=== PATIENT | female | born 1935 | race African-American/Black ===

== ENCOUNTER 2022-07-10 11:17 | Inpatient (IN) | payer MEDICARE, OTHER ==
[~2022-07-10] VITALS: Ht 152.4 cm; Wt 44.5 kg
--- NOTE | 2022-07-10 11:31 | NUR ---
PER CM PT FAMILY REQUEST DC TO [facility]
--- NOTE | 2022-07-10 11:35 | NUR ---
RECEIVED PT 86 YRS FEMALE HERE FOR POOR PO IN TACK AND AGETATION AWAKE CONFUSED NOT FALLOW COMMAND
[2022-07-10] MEDS ORDERED: DONE5TAB7 PO (11:46)
[2022-07-10] MEDS ORDERED: RISP0.2515 PO (11:46)
[2022-07-10] MEDS ORDERED: AMLO5TAB4 PO (11:46)
[2022-07-10] MEDS ORDERED: CLON0.5T4 PO (11:46)
[2022-07-10] MEDS ORDERED: METO25TA20 PO (11:46)
[2022-07-10] MEDS ORDERED: CHOL100043 PO (11:46)
--- NOTE | 2022-07-10 11:54 | NUR ---
INSERTED ANGO CATHTER FR . 20 ON RT AC BLOOD DROW AND SENT TO LAB
[2022-07-10 12:09] LABS: BASOPHILS % (AUTO) 0.6 % (0.0-2.0); EOSINOPHILS % (AUTO) 1.6 % (0.0-6.0); HEMATOCRIT 37 % (33-45); HEMOGLOBIN 11.6 g/dL (11.5-14.8); LYMPHOCYTES # (AUTO) 1.2 K/uL (0.8-4.8); LYMPHOCYTES % (AUTO) 17.4 % (20.0-44.0); MEAN CORPUSCULAR HGB CONC 31 g/dl (31.0-36.0); MEAN CORPUSCULAR VOLUME 82 fL (82-100); MONOCYTES # (AUTO) 0.6 K/uL (0.1-1.30); MONOCYTES % (AUTO) 8.7 % (2.0-12.0); NEUTROPHILS % (AUTO) 71.7 % (43.0-81.0); PLATELET COUNT (AUTO) 189 K/uL (150-450)
[2022-07-10 12:19] LABS: CALCIUM, SERUM 9.2 mg/dL (8.5-10.1); CREATININE 0.8 mg/dL (0.6-1.3); POTASSIUM 3.9 mmol/L (3.5-5.1)
--- NOTE | 2022-07-10 12:21 | NUR ---
COVID SWAB SENT TO LAB
--- NOTE | 2022-07-10 13:18 | NUR ---
I7O CATHETER DONE DRANING 250 ML YELLOW COUDY COLOR UA SENT TO LAB
[2022-07-10 14:01] LABS: BILIRUBIN,URINE NEGATIVE (NEGATIVE); COLOR,URINE YELLOW (YELLOW); LEUKOCYTE ESTERASE ,URINE NEGATIVE (NEGATIVE); NITRITE, URINE NEGATIVE (NEGATIVE); PROTEIN,URINE NEGATIVE (NEGATIVE); UGLUCOSE NEGATIVE (NEGATIVE); UROBILINOGEN,URINE 0.2 EU/dL (0.2)
--- NOTE | 2022-07-10 14:20 | NUR ---
PER NURSING BRIEFCASE SEWER, PT COORDINATING TRANSFER TO [facility]
--- NOTE | 2022-07-10 16:22 | NUR ---
WATING FOR MEDICALE FLOOR BED NO CHEST PAIN NO SOB
[2022-07-10] MEDS ORDERED: METOPROLOL TARTRATE 25 MG TABLET ONE (17:07)
[2022-07-10] MEDS ORDERED: risperiDONE 0.25 MG TABLET PO ONE (17:07)
[2022-07-10] MEDS: METOPROLOL TARTRATE 25 MG TABLET PO SCH (17:15)
[2022-07-10] MEDS: risperiDONE 0.25 MG TABLET PO SCH (17:15)
--- NOTE | 2022-07-10 17:17 | NUR ---
ASPLEEPY ON AND OFF RESTING NO PAIN WATING FOR MEDICALE FLOOD BED
--- NOTE | 2022-07-10 19:25 | NUR ---
HAND OFF FROM CUCA CRENSHAW
--- NOTE | 2022-07-10 19:25 | NUR ---
REC'D REPORT FROM DEN MCNULTY FOR [facility]
[2022-07-10] MEDS ORDERED: DONEPEZIL 5 MG TABLET ONE (21:59)
[2022-07-10] MEDS: DONEPEZIL 5 MG TABLET PO SCH (22:00)
--- NOTE | 2022-07-11 00:02 | NUR ---
GAVE REPORT TO DEN YBARRA FOR [facility]
[2022-07-11 00:30] VITALS: BP 144/56
--- NOTE | 2022-07-11 00:45 | NUR ---
MS ROOF DESIGNER NOTE PATIENT BROUGHT IN FROM ER, ALERT/ORIENTED TO SELF ONLY, VERY CONFUSED. PT STABLE ON RA, NO S/S OF DISTRESS OR SOB NOTED, BREATHING EVEN AND UNLABORED. IV ACCESS ON LAC #20G INTACT AND FLUSHING WELL, WRAPPED WITH KERLIX. PATIENT ADMITTED FROM [facility] D/T POOR PO INTAKE AND AGITATION AND PERIODS OF AGGRESSION. PATIENT FULLY VACCINATED FOR COVID. PATIENT SKIN INTACT. ALL BELONGINGS ACCOUNTED FOR AND BELONGINGS LIST PLACED IN CHART. PATIENT IS AMBULATORY WITH SBA. SAFETY MEASURES IN PLACE: CALL LIGHT WITHIN REACH, SIDE RAILS UP X 3, BED LOCKED IN LOWEST POSITION, BED ALARM ON. WILL CONTINUE TO MONITOR PATIENT
[2022-07-11] MEDS ORDERED: Z GUARD REMEDY 4 OZ OINT TP PRN (01:00)
[2022-07-11] MEDS ORDERED: ACETAMINOPHEN 325 MG TABLET PO PRN (01:00)
[2022-07-11] MEDS ORDERED: ONDANSETRON HCL/PF 4 MG/2 ML VIAL IVP PRN (01:00)
[2022-07-11] MEDS: IV NS 0.9% 1,000 ML IV PRN (01:00)
[2022-07-11] MEDS: ENOXAPARIN SODIUM 40 MG/0.4 ML DISP.SYRIN SQ SCH ×2 (01:03→22:00)
--- NOTE | 2022-07-11 02:00 | NUR ---
MS RN NOTE PATIENT FREQUENTLY TRYING TO GET OUT OF BED, VERY CONFUSED, STATES SHE'S GOING HOME. PATIENT PULLED OUT IV ACCESS
--- NOTE | 2022-07-11 02:16 | NUR ---
CHARGE NURSE NOTES PATIENT WAS TRYING TO GET OUT OF BED, AND WAS VERY CONFUSED , GOT AN ORDER OF BILATERAL SOFT WRIST RESTRAINTS- ORDER NOTED AND CARRIED OUT
--- NOTE | 2022-07-11 06:34 | NUR ---
MS RN CLOSING NOTE PATIENT SLEEPING IN BED, PT ALERT/ORIENTED X 1, CONFUSED THROUGHOUT SHIFT. PATIENT FREQUENTLY REMOVING RESTRAINTS AND GETTING OUT OF BED. PATIENT STABLE ON RA, NO S/S OF DISTRESS OR SOB NOTED, BREATHING EVEN AND UNLABORED. LEFT WRIST #22G IV ACCESS INTACT AND SALINE LOCKED AT THIS TIME D/T PATIENT PULLING OUT IV WHEN GETTING OUT OF BED. MEDICATIONS GIVEN ORDERED, PT NEEDS MET THROUGHOUT SHIFT. SAFETY MEASURES IN PLACE: CALL LIGHT WITHIN REACH, SIDE RAILS UP X 3, BED LOCKED IN LOWEST POSITION, BED ALARM ON. BILATERAL SOFT WRIST RESTRAINTS OFF AT THIS TIME BECAUSE PATIENT HAS SMALL WRIST AND ABLE TO WIGGLE OUT OF THEM. WILL ENDORSE TO DAYSHIFT NURSE FOR CONTINUITY OF CARE
--- NOTE | 2022-07-11 07:27 | NUR ---
MS RN OPENING NOTE PATIENT RESTING IN BED. PT ALERT/ORIENTED X 1, CONFUSED. PATIENT WAS FREQUENTLY REMOVING RESTRAINTS AND GETTING OUT OF BED LAST NIGHT SO RESTRAINTS ARE CURRENTLY REMOVED. SHE DOES HAVE A WANDERGUARD ON HER LEFT WRIST. PATIENT STABLE ON RA, NO S/S OF DISTRESS OR SOB NOTED. BREATHING EVEN AND UNLABORED. RIGHT WRIST #22G. IV ACCESS INTACT AND SALINE LOCKED AT THIS TIME D/T PATIENT PULLING OUT IV WHEN GETTING OUT OF BED. SAFETY MEASURES IN PLACE: CALL LIGHT WITHIN REACH, SIDE RAILS UP X 3, BED LOCKED IN LOWEST POSITION, BED ALARM ON. BILATERAL SOFT WRIST RESTRAINTS OFF AT THIS TIME BECAUSE PATIENT HAS SMALL WRIST AND ABLE TO WIGGLE OUT OF THEM. WILL CONTINUE TO MONITOR AND MEET NEEDS.
[2022-07-11] MEDS: PANTOPRAZOLE 40 MG TABLET.DR PO SCH (07:37)
[2022-07-11 08:00] VITALS: BP 153/68
[2022-07-11] MEDS: MEGESTROL ACETATE SUSP 400 MG/10 ML UDC PO SCH ×2 (08:13→16:04)
[2022-07-11] MEDS: risperiDONE 0.25 MG TABLET PO SCH ×2 (08:13→16:05)
[2022-07-11] MEDS: METOPROLOL TARTRATE 25 MG TABLET PO SCH ×2 (08:14→16:10)
[2022-07-11] MEDS: AMLODIPINE BESYLATE 5 MG TABLET PO SCH (08:14)
[2022-07-11] MEDS: clonazePAM 0.5 MG TABLET PO SCH (08:14)
[2022-07-11 16:00] VITALS: BP 96/74
--- NOTE | 2022-07-11 16:45 | NUR ---
PATIENT SCREAMING AND TRYING TO GET OUT OF HER RESTRAINTS. ALSO HAD BOTH LEGS SWUNG OVEWR THE SIDE OF THE BED IN AN ATTEMPT TO GET OUT OF BED. VERY RESTLESS AND AGITATED AND ASKED RN "WHY DON'T YOU JUST LET ME ?". DR. ARITA GAVE AN ORDER FOR ZYPREXA 5 MG IM BID PRN.
[2022-07-11] MEDS ORDERED: OLANZAPINE 10 MG VIAL IM PRN (17:00)
--- NOTE | 2022-07-11 17:31 | NUR ---
RN NOTES ZYPREXA 5MG IM GIVEN TO RIGHT DELTOID. PATIENT WAS SCREAMING, KICKING AND VERY UNCOOPERATIVE. WILL CONTINUE TO MONITOR.
--- NOTE | 2022-07-11 18:43 | NUR ---
308-2 RN CLOSING NOTE PATIENT IN BED AWAKE AT THIS TIME. ALERT/ORIENTED X 1-2, CONFUSED AND RESTLESS ON AND OFF DURING SHIFT. PT ON BILATERAL SOFT WRIST RESTRAINTS AT THIS TIME, SKIN AND CIRCULATIONS WNL. ON RA, NO S/S OF DISTRESS OR SOB NOTED, BREATHING EVEN AND UNLABORED. RIGHT WRIST #22G IV ACCESS INTACT WITH IVF OF NS @ 75ML/HR INFUSING WELL. ALL NEEDS AND CARE PROVIDED WELL. SAFETY MEASURES IN PLACE: CALL LIGHT WITHIN REACH, SIDE RAILS UP X 3, BED LOCKED IN LOWEST POSITION, BED ALARM ON. WILL ENDORSE TO NEXT SHIFT FOR CONTINUITY OF CARE.
--- NOTE | 2022-07-11 19:20 | NUR ---
MS RN OPENING NOTE RECEIVED PATIENT IN BED, A/OX1 TO NAME ONLY, CONFUSED. NO S/S OF APPARENT DISTRESS ON ROOM AIR. DENIES ANY PAIN AT THIS TIME. ON BILATERAL SOFT WRIST RESTRAINTS. R. WRIST #22G FLUSHING WELL-- FLUIDS RESUMED. SAFETY IN PLACE. WILL CONTINUE TO MONITOR AND CONTINUE WITH PLAN OF CARE FOR PATIENT.
[2022-07-11 20:00] VITALS: BP 165/75
[2022-07-11] MEDS: DONEPEZIL 5 MG TABLET PO SCH (21:59)
[2022-07-12] MEDS: IV NS 0.9% 1,000 ML IV PRN (03:35)
[2022-07-12 06:31] LABS: BASOPHILS % (AUTO) 0.3 % (0.0-2.0); EOSINOPHILS % (AUTO) 0.7 % (0.0-6.0); HEMATOCRIT 37 % (33-45); LYMPHOCYTES # (AUTO) 1.7 K/uL (0.8-4.8); LYMPHOCYTES % (AUTO) 19.1 % (20.0-44.0); MEAN CORPUSCULAR HGB CONC 32 g/dl (31.0-36.0); MEAN CORPUSCULAR VOLUME 81 fL (82-100); MONOCYTES # (AUTO) 0.9 K/uL (0.1-1.30); MONOCYTES % (AUTO) 9.7 % (2.0-12.0); NEUTROPHILS # (AUTO) 6.2 K/uL (1.8-8.9); NEUTROPHILS % (AUTO) 70.2 % (43.0-81.0); PLATELET COUNT (AUTO) 221 K/uL (150-450); WHITE BLOOD COUNT (AUTO) 8.9 K/uL (4.3-11.0)
[2022-07-12 07:16] LABS: CALCIUM, SERUM 9.3 mg/dL (8.5-10.1); CREATININE 0.6 mg/dL (0.6-1.3); POTASSIUM 2.9 mmol/L (3.5-5.1)
--- NOTE | 2022-07-12 07:24 | NUR ---
MS RN CLOSING NOTE PATIENT IN BED SLEEPING, WITH NO APPARENT DISTRESS. A/OX3 THIS AM. ON RESTRAINT VACATION AT THE MOMENT. NO C/O PAIN. IV NS RUNNING @75MLS/HR. ALL NEEDS ATTENDED. ALL SCHEDULED MEDICATIONS ADMINISTERED. SAFETY KEPT IN PLACE THE WHOLE SHIFT. ENDORSED TO DEN STOCK FOR CONTINUITY OF PATIENT CARE.
[2022-07-12] MEDS: PANTOPRAZOLE 40 MG TABLET.DR PO SCH (07:46)
[2022-07-12] MEDS: clonazePAM 0.5 MG TABLET PO SCH (08:06)
[2022-07-12] MEDS: risperiDONE 0.25 MG TABLET PO SCH ×2 (08:06→16:58)
[2022-07-12] MEDS: MEGESTROL ACETATE SUSP 400 MG/10 ML UDC PO SCH ×2 (08:06→16:58)
[2022-07-12] MEDS: AMLODIPINE BESYLATE 5 MG TABLET PO SCH (08:07)
[2022-07-12] MEDS: METOPROLOL TARTRATE 25 MG TABLET PO SCH ×2 (08:08→16:57)
[2022-07-12 08:18] VITALS: BP 139/72
[2022-07-12] MEDS ORDERED: POTASSIUM CHLORIDE 20 MEQ POWDER PACKET PO SCH (10:00)
[2022-07-12] MEDS ORDERED: MEGE400O5 PO (13:40)
[2022-07-12 16:24] VITALS: BP 140/58
[2022-07-12 16:57] VITALS: BP 140/58
--- NOTE | 2022-07-12 18:13 | NUR ---
PSYCHIATRIST NOTES PT DISCHARGED TO [facility] IN STABLE CONDITION. A/O X1-2. ABLE TO MAKE NEEDS KNOWN WITH PERIODS OF CONFUSION AND FORGETFULNESS. NO SKIN ISSUES NOTED. ALL BELONGINGS ACCOUNTED FOR. IV ACCESS ON RIGHT WRIST G#22 REMOVED WITH NO ACTIVE BLEEDING NOTED, DRY PRESSURE DRESSING APPLIED AT SITE. CALLED AND REPORT GIVEN TO MIGUEL (RN) OF [facility] AND VERBALIZED UNDERSTANDING, SHE STATED THAT PT WILL GO TO [facility]. PT'S DAUGHTER CRISTINA CALLED AND INFORMED OF PT'S DISCHARGE. EXIT FOLDER HANDED TO EMT'S. PT LEFT UNIT @ 1800 [facility] [employer] ACCOMPANIED BY 3 EMT'S FROM [facility]. MD AND CHARGE NURSE AWARE OF DISCHARGE.
== END 2022-07-12 18:00 | DRG 640 ==
LOC: ER 11:20 → TRANSITION 17:31 → MED 23:40
PROVIDERS: ADMIT Nurse Practitioner Acute Care; ATTEND Nurse Practitioner Acute Care
DX: R62.7 Adult failure to thrive (principal); E43 Unspecified severe protein-calorie malnutrition; G93.41 Metabolic encephalopathy; Z68.1 Body mass index [BMI] 19.9 or less, adult; F02.81 Dementia in other diseases classified elsewhere, unspecified severity, with behavioral disturbance; I10 Essential (primary) hypertension; Z79.899 Other long term (current) drug therapy; G30.9 Alzheimer's disease, unspecified; E87.6 Hypokalemia
CPT/HCPCS: 36415; 80048-TC; 80061-TC; 83735-TC; 84100-TC; 85025-TC; 87081-TC; 97116-TC; 97530-TC; C9803; G0378; J1650; J3490; J7030